=== PATIENT | female | born 1940 | race Caucasian/White ===

== ENCOUNTER 2018-02-09 16:25 | Emergency (ER) | payer MEDICARE ==
[~2018-02-09] VITALS: Ht 160 cm; Wt 86.2 kg
[~2018-02-09 16:25] MED LIST: ASPIR 8181 MG PO; ATORVASTATIN CA10 MG PO; BYSTOLIC5 MG PO; CIPRO500 MG PO; CITALOPRAM HBR20 MG PO; CRANBERRY PO; FUROSEMIDE20 MG PO; HYDROCODON-ACE1 EAC9 PO; INSULIN PUMP; LISINOPRIL20 MG PO; LYRICA; PROBIOTIC PO; SYNTHROID75 MCG; TRAMADOL-ACETAMI1 EA PO; UNKNOWN MED; VITAMIN D32000 UNIT PO
--- OUTSIDE RECORDS SUMMARY | 2018-02-09 16:28 | XMS REPORT ---
[facility] Address Unknown Phone Unavailable Care Team Providers Care Phlebotomy Tech Name Role Phone STEVE STALEY Unavailable Unavailable Problems This patient has no known problems. Allergies, Adverse Reactions, Alerts This patient has no known allergies or adverse reactions. Medications This patient has no known medications. Results Test Description Test Time Test Comments Text Results Atomic Results Result Comments CT CERVICAL SPINE WO [place] [address] Patient Name: PAIGE OLEA MR #: [id number] : 1940 Age/Sex: 76/F Req #: [id number] Adm Physician: Ordered by: MARITZA DUVAL Report #: [id number] Location: ER Room/Bed: Procedure: [id number] CT/CT CERVICAL SPINE WO Exam Date: 08/09/17 Exam Time: 1921 REPORT STATUS: Signed ADDENDUM #1 Please note, cannot adequately evaluate ligament, spinal cord or vascular abnormalities on the basis of this examination. If there is concern for vascular, ligamentous or spinal cord injury, cervical spine MRI and cervical MRA or CTA could further evaluate. Signed by: Dr. Jose Rausch M.D. on 8:49 PM ORIGINAL REPORT Exam: Cervical spine CT without IV contrast History: Trauma, CVA Comparison studies: None Technique: Axial images were obtained through the cervical region. Coronal and sagittal images reconstructed from the axial data. Intravenous contrast: None Findings: Atlantoaxial articulation: Intact Alignment: Mild cervical kyphosis at C4-C5 where there is mild anterolisthesis of C4 on C5 which is most likely degenerative. Cervicomedullary junction: No abnormalities. Patent foramen magnum. Soft tissues: No gross abnormalities. Vertebrae: Mildly displaced fracture through the base the dens extends posteriorly through the superior C2 vertebral body with associated avulsion of the posterior C2 vertebral body cortex. There is approximate 5 mm anterior translation of the C2 vertebral body in relationship to the dens. The atlantodental intervals remain intact. There is only mild narrowing of the upper cervical canal at the C1-C2 level. No additional fractures. Postsurgical changes: Anterior cervical discectomy and fusion at C3-C4 with anterior plate fixated via vertebral body screws without evidence of hardware failure or hardware loosening. A C3-C4 disc spacers is in place and there is solid curvature osseous C3-C4 interbody fusion. Degenerative changes: C2-C3: Mildly degenerated disc. Small disc osteophyte complex indents the thecal sac without significant canal stenosis. C3-4: Surgical level. Mild bilateral facet and uncovertebral arthrosis without significant foraminal stenosis. Osteophyte complex indents the thecal sac and results in mild canal stenosis. C4-5: Mildly degenerated disc. Approximately 1 mm anterolisthesis of C4 on C5 with associated uncovered disc/disc osteophyte complex results in mild canal stenosis. Moderate right foraminal stenosis due to uncovertebral arthrosis and severe right facet arthrosis. Moderate left facet arthrosis. Patent left foramen. C5-6: Moderately degenerated disc. Mild canal stenosis due to a disc osteophyte complex. Mild bilateral foraminal stenosis due to uncovertebral facet arthrosis. C6-7: Moderately degenerated disc. Mild bilateral foraminal stenosis due to uncovertebral facet arthrosis. No significant canal stenosis . C7-T1: Mildly degenerated disc. Mild bilateral facet arthrosis. Patent canal and foramina. Incidental findings: Atherosclerotic calcifications in the cervical carotid bulbs. IMPRESSION: 1. Mildly displaced type II- III dens fracture. Approximately 5 mm anterior translation of the C2 vertebral body in relationship to the dens with only mild narrowing at the C1- C2 articulation. 2. No additional fractures or acute subluxations. 3. Surgical changes of C3-C4 ACDF without hardware failure or loosening. 4. Degenerative changes as described. Findings were discussed with CATHIE Rowland at 8:13 PM on 08/09/2017. Signed by: Dr. Jose Rausch M.D. on 2016 8:16 PM Dictated By: JOSE RAUSCH MD 48 Transcribed By: GINGER on 08/09/172015 COPY TO: MARITZA DUVAL CT BRAIN WO [place] [address] Patient Name: PAIGE OLEA MR #: [id number] : 1940 Age/Sex: 76/F Req #: [id number] Adm Physician: Ordered by: MARITZA DUVAL Report #: [id number] Location: ER Room/Bed: Procedure: [id number] CT/CT BRAIN WO Exam Date: 08/09/17 Exam Time: 1921 REPORT STATUS: Signed Exams: Head and max of facial CTs without IV contrast History: Trauma, known recent left globe injury. Comparison studies : Multiple head CTs and brain MRIs which date to 09/14/2013, most recent brain MRI of 10/17/2015. Technique: Axial images were obtained to the vertex and maxillofacial region. Coronal and sagittal images reconstructed from the axial data. Intravenous contrast: None Findings: Scalp: No abnormalities. Bones: No fractures, blastic or lytic lesions. Brain sulci : Moderately prominent.. Ventricles: Moderately dilated ventricles may be related to degree of central greater peripheral cortical volume loss. Consider communicating/normal pressure hydrocephalus only in the appropriate clinical context. Extra axial spaces: No mass, no fluid collection. Parenchyma: No mass, acute hemorrhage or acute or chronic cortical vascular insults. Confluent hypodensities in the supratentorial white matter are nonspecific but most compatible with chronic small vessel ischemic changes. Hypodense changes in the cyndi and thalami also most likely reflect chronic small vessel ischemic changes. Sellar/suprasellar region: No abnormalities Craniocervical junction: Patent foramen magnum. No Chiari one malformation. Maxillofacial CT: Soft tissues: Possible small perinasal soft tissue swelling. Bones: Nondisplaced left nasal bone fracture is again identified and could be correlated with point tenderness to assess for acute on chronic injury. Age-indeterminate minimally depressed right nasal bone fracture at its junction with the right frontal process of the maxilla. No additional fractures. Orbits: There are bilateral lens replacements related to previous cataract surgery. There is increased density in the vitreous chamber of the left globe concerning for hemorrhage with possible changes of retinal detachment no retrobulbar hemorrhage. Paranasal sinuses: Mild inflammatory mucosal thickening in the right frontal sinus and ethmoid air cells bilaterally. Incidental findings: Atherosclerotic calcifications in in the carotid siphons and cervical carotid bulbs. Partially imaged C2 fracture as described on the cervical spine CT performed on the same date. IMPRESSION: Head CT: 1. No acute intracranial abnormalities. 2. Unchanged moderate generalized volume loss with severe chronic small vessel ischemic changes. 3. Unchanged nonspecific ventriculomegaly which may be related to volume loss. Consider normal pressure hydrocephalus only in the appropriate context. Maxillofacial CT: 1. Hemorrhage within the left globe with possible retinal detachment. Findings can be correlated with ophthalmologic exam. No retrobulbar hematoma. 2. Bilateral nasal bone fractures which may be chronic but could be correlated for point tenderness to exclude acute on chronic injury. 3. No additional maxillofacial fractures. 4. Partially imaged C2 fracture as detailed on the cervical spine CT of the same date. Signed by : Dr. Jose Rausch M.D. on 08/09/2017 8:37 PM Dictated By: JOSE RAUSCH MD 36 Transcribed By: GINGER on 08/09/172036 COPY TO: MARITZA DUVAL PA [facility] [address] Patient Name: PAIGE OLEA MR #: [id number] : 1940 Age/Sex: 76/F Req #: [id number] Adm Physician: Ordered by: MARITZA DUVAL Report #: [id number] Location: ER Room/Bed: Procedure: [id number] CT/CT MAXIO FAC/PARANAS WO Exam Date: 08/09/17 Exam Time: 1921 REPORT STATUS: Signed Exams: Head and max of facial CTs without IV contrast History: Trauma, known recent left globe injury. Comparison studies: Multiple head CTs and brain MRIs which date to 09/14/2013, most recent brain MRI of 10/17/2015. Technique: Axial images were obtained to the vertex and maxillofacial region. Coronal and sagittal images reconstructed from the axial data. Intravenous contrast: None Findings: Scalp: No abnormalities. Bones: No fractures, blastic or lytic lesions. Brain sulci: Moderately prominent.. Ventricles: Moderately dilated ventricles may be related to degree of central greater peripheral cortical volume loss. Consider communicating/normal pressure hydrocephalus only in the appropriate clinical context. Extra axial spaces : No mass, no fluid collection. Parenchyma: No mass, acute hemorrhage or acute or chronic cortical vascular insults. Confluent hypodensities in the supratentorial white matter are nonspecific but most compatible with chronic small vessel ischemic changes. Hypodense changes in the cyndi and thalami also most likely reflect chronic small vessel ischemic changes. Sellar/ suprasellar region: No abnormalities Craniocervical junction: Patent foramen magnum. No Chiari one malformation. Maxillofacial CT: Soft tissues: Possible small perinasal soft tissue swelling. Bones: Nondisplaced left nasal bone fracture is again identified and could be correlated with point tenderness to assess for acute on chronic injury. Age-indeterminate minimally depressed right nasal bone fracture at its junction with the right frontal process of the maxilla. No additional fractures. Orbits: There are bilateral lens replacements related to previous cataract surgery. There is increased density in the vitreous chamber of the left globe concerning for hemorrhage with possible changes of retinal detachment no retrobulbar hemorrhage. Paranasal sinuses: Mild inflammatory mucosal thickening in the right frontal sinus and ethmoid air cells bilaterally. Incidental findings: Atherosclerotic calcifications in in the carotid siphons and cervical carotid bulbs. Partially imaged C2 fracture as described on the cervical spine CT performed on the same date. IMPRESSION: Head CT: 1. No acute intracranial abnormalities. 2. Unchanged moderate generalized volume loss with severe chronic small vessel ischemic changes. 3. Unchanged nonspecific ventriculomegaly which may be related to volume loss. Consider normal pressure hydrocephalus only in the appropriate context. Maxillofacial CT: 1. Hemorrhage within the left globe with possible retinal detachment. Findings can be correlated with ophthalmologic exam. No retrobulbar hematoma. 2. Bilateral nasal bone fractures which may be chronic but could be correlated for point tenderness to exclude acute on chronic injury. 3. No additional maxillofacial fractures. 4. Partially imaged C2 fracture as detailed on the cervical spine CT of the same date. Signed by : Dr. Jose Rausch M.D. on 08/09/2017 8:37 PM Dictated By: JOSE RAUSCH MD 36 Transcribed By: GINGER on 08/09/172036 COPY TO: MARITZA DUVAL FOREARM LEFT 2 VIEW [place] [address] Patient Name: PAIGE OLEA MR #: [id number] : 1940 Age/Sex: 76/F Req #: [id number] Adm Physician: Ordered by: MARITZA DUVAL Report #: [id number] Location: ER Room/Bed: Procedure: [id number] DX/FOREARM LEFT 2 VIEW Exam Date: 08/09/17 Exam Time : 1844 REPORT STATUS: Signed Exam: Forearm 2 views History: Pain Comparison: None. Findings: No fracture or malalignment. Degenerative arthrosis of the elbow. No abnormal soft tissue calcification or soft tissue defect. Impression: No acute osseous abnormality Signed by: Dr. Oneida Shukla M.D. on 08/09/2017 7:11 PM Dictated By: ONEIDA SHUKLA MD 10 Transcribed By: GINGER on 08/09/171910 COPY TO: MARITZA DUVAL CHEST SINGLE (PORTABLE) [place] [address] Patient Name: PAIGE OLEA MR #: [id number] : 1940 Age/Sex: 76/F Req #: [id number] Adm Physician: Ordered by: MARITZA DUVAL Report #: [id number] Location: ER Room/Bed: Procedure: [id number] DX/CHEST SINGLE (PORTABLE) Exam Date: 08/09/17 Exam Time: 1834 REPORT STATUS: Signed Examination: Single AP view of the chest. COMPARISON: None. INDICATION: Syncope, fall DISCUSSION: Lines/tubes: None. Lungs: The lungs are well inflated and clear. There is no evidence of pneumonia or pulmonary edema. Pleura: There is no pleural effusion or pneumothorax. Heart and mediastinum: The heart and the mediastinum are unremarkable. Bones and soft tissues: No acute bony abnormalities. Remote left-sided rib fractures. IMPRESSION: 1. No acute cardiopulmonary abnormalities. Signed by: Dr. Oneida Shukla M.D. on 08/09/2017 7:09 PM Dictated By : ONEIDA SHUKLA MD 08 COPY TO: MARITZA DUVAL
[2018-02-09] MEDS ORDERED: HYDROCODONE/APAP 5MG-325MG TAB PO ONE (18:00)
--- NOTE | 2018-02-09 18:04 | Diagnostic Imaging Report ---
Exams: Head and cervical spine CTs without IV contrast History: Trauma, fall Comparison studies: Multiple prior head CTs and brain MRIs which date to 09/14/2013, most recent head CT of 08/09/2017 Technique: Axial images were obtained from the brain and cervical spine. Coronal and sagittal images reconstructed from the axial data. Intravenous contrast: None Findings: Head CT: Scalp: No abnormalities. Bones: No fractures, blastic or lytic lesions. Extra-axial spaces: No masses. No fluid collections. Brain sulci: Moderately prominent. Ventricles: Moderate ventriculomegaly slightly disproportionate to sulcal prominence may be related to central greater peripheral cortical volume loss. Consider normal pressure hydrocephalus (NPH) in the appropriate clinical setting. Parenchyma: No mass, acute hemorrhage or acute cortical vascular insult. Confluent hypodensity throughout the supratentorial white matter are nonspecific but most compatible with chronic small vessel ischemic changes. Sellar/suprasellar region: No abnormalities. Craniocervical junction: The foramen magnum is patent. No Chiari one malformation. Cervical spine CT: Fractures: No acute fractures. Chronic fracture through the dens which extends through the base of the dens to its junction with the C2 vertebral body with improved alignment compared to the previous exam (now approximately 1 mm anterior translation of C2 vertebral body relationship to the dens, previously 5 mm). There is partial osseous bridging along the avulsed posterior cortex of the dens and C2 vertebral body. Otherwise, there is no significant osseous union of fracture fragments. Soft tissues: No gross acute abnormalities. Atlantoaxial articulation: The anterior atlantodental interval is maintained. Alignment: Mild anterolisthesis of C4 on C5 Cervicomedullary junction: No abnormalities. The foramen magnum is patent. Vertebrae: No infection or neoplasm. Surgical changes: Anterior cervical discectomy and fusion (ACDF) at C3-C4 with disc spacer in place and solid interbody fusion. Degenerative changes: Moderately degenerated disks at C5-C6 and at C6-C7. Mildly degenerated disc at C2-C3, C4-C5 and at C7-T1. Mild canal stenosis at C3-C4 due to a posterior osteophyte at the discectomy level. Mild canal stenosis at C4-C5 and at C5-C6 due to disc osteophyte complexes and degenerative listhesis of C4 on C5. Multilevel facet arthrosis, worse bilaterally at C4-C5. Multilevel foraminal stenosis due to uncovertebral facet arthrosis (moderate right at C4-C5, mild bilaterally at C5-C6 and at C6-C7). Incidental findings: * Traumatic changes related to previous left globe injury with heterogeneously, hyperdense globe which has undergone involutional changes and volume loss since the previous exam. * Right intraocular lens replacement. * Atherosclerotic calcifications in the carotid siphons and in the cervical carotid bulbs. IMPRESSION: Head CT: No acute abnormalities. Chronic findings: 1. Moderate generalized volume loss. 2. Severe microvascular ischemic changes. 3. Nonspecific ventriculomegaly. Consider NPH only in the appropriate clinical setting. No acute hydrocephalus 4. 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 Cervical spine CT: 1. No acute fractures or acute subluxations. 2. Chronic dens fracture with improved alignment since the 08/09/2017 exam but without significant osseous union. 3. Surgical changes of C3-C4 ACDF. 4. Degenerative changes as described. 5. Cannot adequately evaluate ligament, spinal cord and or vascular abnormalities on the basis of this examination. Signed by: Dr. Arvind Rausch M.D. on 02/09/2018 6:00 PM
--- NOTE | 2018-02-09 18:08 | Diagnostic Imaging Report ---
HIP LEFT 2-3 VW (+/- PELVIS) - 3 views HISTORY: Pain COMPARISON: None available. FINDINGS: Limited by body habitus. Bones: No acute displaced fracture. Osseous alignment is within normal limits. Joints: The joint spaces are well-maintained. Soft tissues: The soft tissues appear unremarkable. IMPRESSION: No acute radiographic abnormality. Signed by: Dr. Venkat Tim MD on 02/09/2018 6:04 PM
[2018-02-09 18:54] VITALS: BP 149/66
== END 2018-02-09 19:00 | disposition home or self-care (01) ==
LOC: ER 16:25
DX: S00.83XA Contusion of other part of head, initial encounter (principal); S12.110A Anterior displaced Type II dens fracture, initial encounter for closed fracture; S30.0XXA Contusion of lower back and pelvis, initial encounter; M25.552 Pain in left hip; W01.0XXA Fall on same level from slipping, tripping and stumbling without subsequent striking against object, initial encounter; Y92.008 Other place in unspecified non-institutional (private) residence as the place of occurrence of the external cause; E11.9 Type 2 diabetes mellitus without complications
CPT/HCPCS: 70450; 72125; 99283

== ENCOUNTER → 2020-08-12 | Outpatient (CLI) | payer MEDICARE | LOC: RAD 09:54 | PROVIDERS: ATTEND Internal Medicine Interventional Cardiology | DX: J18.9 Pneumonia, unspecified organism (principal); J90 Pleural effusion, not elsewhere classified | CPT/HCPCS: 71046 ==